=== PATIENT | female | born 1955 | race Caucasian/White ===

== ENCOUNTER 2017-08-20 16:24 | Emergency (ER) | payer OTHER ==
[2017-08-20 16:41] VITALS: O2SAT 98
[2017-08-20] MEDS ORDERED: Adacel Vial IM ONE ×2 (17:02→17:18)
[2017-08-20] MEDS ORDERED: TYLENOL 325 MG PO STA (17:02)
[2017-08-20] MEDS ORDERED: Augmentin 875-125 Tablet PO ONE (17:02)
--- NOTE | 2017-08-20 17:10 | ERPHSYRPT ---
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 Triage Nursing Assessment: pt pink, warm, dry. 2 puncture wounds with bruising noted to right anterior thigh. no bleeding. pt ambulated into Er without difficulty. 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 Method of Injury: other (DOG BITE) Occurred: just prior to arrival Quality: throbbing Severity of Pain-Max: mild Severity of Pain-Current: mild Lower Extremities Pain: thigh: right (MID ASPECT) Modifying Factors: Improves With: nothing Associated Symptoms: other (PAIN UPON WEIGHT BEARING) Allergies/Adverse Reactions: isosorbide [From Imdur] Allergy (Intermediate, Verified 08/20/17 16:41) Home Medications: Aspirin EC 81 mg [Ecotrin 81 mg] 81 mg PO QPM 05/24/13 [History] Clopidogrel Bisulfate 75 mg [PLAVIX 75 MG Tablet] 75 mg PO QAM 05/24/13 [ History] Levothyroxine Sodium 75 Mcg [Synthroid 75 Mcg] 50 mcg PO QAM 05/24/13 [ History] Nebivolol HCl 5 MG [Bystolic 5 MG] 20 mg PO QPM 05/24/13 [History] Vit 91/Iron/Folic/Dha [ + Dha Combo Pack] 1 each PO QAM [History] Amlodipine Besylate [Norvasc] 5 mg PO DAILY 06/01/13 [History] Ospemifene [Osphena] 60 mg PO DAILY 08/20/17 [History] Hx Tetanus, Diphtheria Vaccination/Date Given: Yes (unknown) Hx Influenza Vaccination/Date Given: No Hx Pneumococcal Vaccination/Date Given: No Immunizations Up to Date: Yes - Review of Systems Constitutional: No Fever, No Chills Eyes: No Symptoms Ears, Nose, & Throat: No Symptoms Cardiac: No Chest Pain, No Edema, No Syncope Abdominal/Gastrointestinal: No Symptoms, No Abdominal Pain, No Nausea, No Vomiting, No Diarrhea Genitourinary Symptoms: No Symptoms, No Dysuria Musculoskeletal: Injury, Other (DOG BITE), No Back Pain, No Neck Pain Skin: No Rash Neurological: No Dizziness, No Focal Weakness, No Sensory Changes Psychological: No Symptoms Endocrine: No Symptoms All Other Systems: Reviewed and Negative - Past Medical History Pertinent Past Medical History: Yes Neurological History: No Pertinent History ENT History: No Pertinent History Cardiac History: Coronary Artery Disease, High Cholesterol, Hypertension Respiratory History: No Pertinent History Endocrine Medical History: Hypothyroidism Musculoskeletal History: No Pertinent History GI Medical History: No Pertinent History History: No Pertinent History Psycho-Social History: No Pertinent History Female Reproductive Disorders: No Pertinent History Other Medical History: two stints in her heart - Past Surgical History Past Surgical History: Yes Neuro Surgical History: No Pertinent History Cardiac: Cardiac Catheterization, Cardiac Stent Respiratory: No Pertinent History Gastrointestinal: No Pertinent History Genitourinary: No Pertinent History Musculoskeletal: No Pertinent History Female Surgical History: Tubal Ligation - Social History Smoking Status: Former smoker How long have you smoked: 30 Exposure to second hand smoke: Yes Alcohol Use: Socially Drug Use: none Patient Lives Alone: No Significant Family History: no pertinent family hx - Female History Hx Now: No - Nursing Vital Signs Nursing Vital Signs: Initial Vital Signs Temperature 97.8 F 08/20/17 16:37 Pulse Rate 74 08/20/17 16:37 Respiratory Rate 18 08/20/17 16:37 Blood Pressure 156/90 08/20/17 16:37 O2 Sat by Pulse Oximetry 98 08/20/17 16:37 Pain Scale Pain Intensity 3 - Physical Exam General Appearance: alert Legs Exam: right leg: pain, swelling, other (RIGHT MID THIGH 5CM X 8CM SWELLING WITH ECCHYMOSIS SURROUNDING 2 3MM X 4MM PUNCTURE WOUNDS) Skin Exam: normal color, warm, dry SpO2 Interpretation: normal SpO2: 98 Oxygen Delivery: Room Air Ordered Tests: Active Orders 24 hr Category Date Time Status Wound Care STAT Care 08/20/17 17:04 Active Medication Summary Discontinued Medications Generic Name Dose Route Start Last Admin Trade Name Freq PRN Reason Stop Dose Admin Acetaminophen 650 mg 08/20/17 17:02 Tylenol 325 Mg PO 08/20/17 17:03 STAT STA Amoxicillin/Clavulanate Potassium 875 mg 08/20/17 17:02 Augmentin 875-125 Tablet PO 08/20/17 17:03 STAT ONE Diphtheria/Tetanus/Acell Pertussis 0.5 ml 08/20/17 17:02 Adacel Vial IM 08/20/17 17:03 .ONCE ONE - Progress Progress Note: 08/20/17 17:17 THE WOUND CLEANSE WITH HIBICLENS, ADMINISTERED TETNUS T-DAP 0.5ML IM. TYLENOL 650MG, AUGMENTIN 875MG ORALLY 08/20/17 17:18 08/20/17 17:19 Counseled pt/family regarding: diagnosis, need for follow-up - Departure Time of Disposition: 17:30 Departure Disposition: Home Clinical Impression: DOG BITE RIGHT THIGH Condition: Stable Critical Care Time: No Additional Instructions: CLEANSE PUNCTURE SITES WITH SOAP AND WATER TWICE DAILY AND APPLY BACITRACIN OINTMENT OVER WOUND AFTER CLEANSING. ANTIBIOTIC AUGMENTIN 875MG TWICE DAILY FOR 10 DAYS, TYLENOL #3 EVERY 4-6 HOURS NEEDED. APPLY ICE OVER THIGH SWELLING EVERY 4 HOURS, 30 MINUTES FOR DURATION 48 HOURS. WATCH FOR SIGNS OF INFECTION, REDNESS, SWELLING OR DRAINAGE. Prescriptions: Codeine Phosphate/APAP #3 [Tylenol #3 Tablet] 1 tab PO Q4H PRN PRN #15 tablet PRN Reason: Pain Amox Tr/Potass Clav. 875 mg [Augmentin 875-125 Tablet] 875 mg PO BID #20 tablet
[2017-08-20] MEDS ORDERED: TYLENOL 325 MG ONE (17:18)
[2017-08-20] MEDS ORDERED: Augmentin 875-125 Tablet ONE (17:18)
[2017-08-20 17:47] VITALS: BP 158/97; PULSE 75
== END 2017-08-20 17:44 | disposition home or self-care (01) ==
LOC: ED 16:24
DX: S71.151A Open bite, right thigh, initial encounter (principal); W54.0XXA Bitten by dog, initial encounter
CPT/HCPCS: 90471; 90715; 99284; A9270-GY

== ENCOUNTER 2018-06-15 17:27 | Emergency (ER) | payer OTHER ==
[2018-06-15] MEDS ORDERED: TORAdol 30 mg Injection IV ONE (17:59)
[2018-06-15] MEDS ORDERED: Zofran 4 MG/2 ML VIAL IV ONE (17:59)
[2018-06-15] MEDS ORDERED: Hydromorphone 1 mg/ml Ampule IV ONE (17:59)
[2018-06-15] MEDS ORDERED: Sodium Chloride 0.9% 1000 ML 1,000 ML IV SCH (18:00)
[2018-06-15] MEDS ORDERED: Zofran 4 MG/2 ML VIAL ONE (18:08)
[2018-06-15] MEDS ORDERED: Hydromorphone 1 mg/ml Ampule ONE (18:08)
[2018-06-15] MEDS ORDERED: TORAdol 30 mg Injection ONE (18:08)
[2018-06-15] MEDS ORDERED: Sodium Chloride 0.9% 1000 ML 1,000 ML ONE (18:08)
--- NOTE | 2018-06-15 18:14 | ERPHSYRPT ---
- History of Present Illness Time Seen by Provider: 06/15/18 17:57 Historian: patient Exam Limitations: clinical condition Patient Subjective Stated Complaint: left side back pain starting yesterday. thought she may have a UTI.. 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 Triage Nursing Assessment: alert and restless.. pain in left flank going into left abdomen.. able to urinate on arrival. no known injury. no pain on palpation.. pain has increased since yesterday Physician History: PATIENT WITH A HISTORY OF HYPERTENSION, CORONARY ARTERY DISEASE COMPLAINS OF LEFT FLANK PAIN ONSET YESTERDAY AT 4PM, CONSTANT WITH RADIATION INTO LEFT LOWER ABDOMEN. HAS ASSOCIATED NAUSEA. DENIES FEVER, CHILLS, URINARY SYMPTOMS, DIARRHEA. STATES PAIN SCALE 9/10. ADMITS TO SHOVELING 3 TRUCK LOADS OF SAW DUST 4 DAYS AGO. Timing/Duration: yesterday Activities at Onset: none Quality: sharpness, throbbing Abdominal Pain Onset Location: LLQ, flank Pain Radiation: no radiation Severity of Pain-Max: severe Severity of Pain-Current: severe Modifying Factors: Improves With: movement Associated Symptoms: nausea Previous symptoms: no prior history Allergies/Adverse Reactions: isosorbide [From Imdur] Allergy (Intermediate, Verified 06/15/18 17:52) Home Medications: Aspirin EC 81 mg [Ecotrin 81 mg] 81 mg PO QPM 05/24/13 [History] Clopidogrel Bisulfate 75 mg [PLAVIX 75 MG Tablet] 75 mg PO QAM 05/24/13 [ History] Levothyroxine Sodium 75 Mcg [Synthroid 75 Mcg] 50 mcg PO QAM 05/24/13 [ History] Nebivolol HCl 5 MG [Bystolic 5 MG] 20 mg PO QPM 05/24/13 [History] Vit 91/Iron/Folic/Dha [ + Dha Combo Pack] 1 each PO QAM [History] Amlodipine Besylate [Norvasc] 5 mg PO DAILY 06/01/13 [History] Ospemifene [Osphena] 60 mg PO DAILY 08/20/17 [History] Hx Tetanus, Diphtheria Vaccination/Date Given: Yes (unknown) Hx Influenza Vaccination/Date Given: No Hx Pneumococcal Vaccination/Date Given: No - Review of Systems Constitutional: No Fever, No Chills Eyes: No Symptoms Ears, Nose, & Throat: No Symptoms Respiratory: No Cough, No Dyspnea Cardiac: No Chest Pain, No Edema, No Syncope Abdominal/Gastrointestinal: Abdominal Pain, No Nausea, No Vomiting, No Diarrhea Genitourinary Symptoms: Flank Pain, No Dysuria Musculoskeletal: No Back Pain, No Neck Pain Skin: No Rash Neurological: No Dizziness, No Focal Weakness, No Sensory Changes Psychological: No Symptoms Endocrine: No Symptoms All Other Systems: Reviewed and Negative - Past Medical History Pertinent Past Medical History: Yes Neurological History: No Pertinent History ENT History: No Pertinent History Cardiac History: Coronary Artery Disease, High Cholesterol, Hypertension Respiratory History: No Pertinent History Endocrine Medical History: Hypothyroidism Musculoskeletal History: No Pertinent History GI Medical History: No Pertinent History History: No Pertinent History Psycho-Social History: No Pertinent History Female Reproductive Disorders: No Pertinent History Other Medical History: two stints in her heart - Past Surgical History Past Surgical History: Yes Neuro Surgical History: No Pertinent History Cardiac: Cardiac Catheterization, Cardiac Stent Respiratory: No Pertinent History Gastrointestinal: No Pertinent History Genitourinary: No Pertinent History Musculoskeletal: No Pertinent History Female Surgical History: Tubal Ligation - Social History Smoking Status: Unknown if ever smoked How long have you smoked: 30 Exposure to second hand smoke: No Alcohol Use: Socially Drug Use: none Patient Lives Alone: No Significant Family History: no pertinent family hx - Female History Hx Now: No - Nursing Vital Signs Nursing Vital Signs: Initial Vital Signs Temperature 98.5 F 06/15/18 17:45 Pulse Rate 77 06/15/18 17:45 Respiratory Rate 20 06/15/18 17:45 Blood Pressure 164/86 06/15/18 17:45 O2 Sat by Pulse Oximetry 100 06/15/18 17:45 Pain Scale Pain Intensity [] 8 Pain Intensity 7 - Physical Exam General Appearance: moderate distress Eye Exam: PERRL/EOMI Ears, Nose, Throat Exam: normal ENT inspection Neck Exam: normal inspection, non-tender, supple, full range of motion Respiratory Exam: normal breath sounds, lungs clear, No respiratory distress Cardiovascular Exam: regular rate/rhythm, normal heart sounds Gastrointestinal/Abdomen Exam: soft, normal bowel sounds, tenderness (LEFT LOWER LATERAL ABDOMINAL AREA) Back Exam: CVA tenderness (MINIMAL LEFT CVA TENDERNESS, MARKED LEFT PARASPINAL LUMBAR TENDERNESS L1-L4) Extremity Exam: normal inspection Neurologic Exam: alert, oriented x 3 Skin Exam: normal color SpO2 Interpretation: normal SpO2: 100 Oxygen Delivery: Room Air - CT Exams Abdomen/Pelvis CT Interpretation: Discussed w/radiologist (FAINT NONOBSTRUCTIVE BILATERAL RENAL STONES OTHERWISE NEGATIVE) Ordered Tests: Active Orders 24 hr Category Date Time Status IV Insertion STAT Care 06/15/18 17:59 Active ABDOMEN AND PELVIS W/0 CONTRAS [CT] Stat Exams 06/15/18 17:59 Taken CBC W DIFF Stat Lab 06/15/18 18:15 Completed CMP Stat Lab 06/15/18 18:15 Completed CULTURE,URINE Stat Lab 06/15/18 18:14 Received UA W/RFX UR CULTURE Stat Lab 06/15/18 18:14 Completed Medication Summary Generic Name Dose Route Start Last Admin Trade Name Freq PRN Reason Stop Dose Admin Sodium Chloride 1,000 mls @ 250 mls/hr 06/15/18 18:00 06/15/18 18:15 Sodium Chloride 0.9% 1000 Ml IV 07/15/18 17:59 250 mls/hr .Q4H MATTIE Administration Discontinued Medications Generic Name Dose Route Start Last Admin Trade Name Freq PRN Reason Stop Dose Admin Fentanyl Citrate 50 mcg 06/15/18 20:03 06/15/18 20:12 Sublimaze 100 Mcg/2 Ml IV 06/15/18 20:04 50 mcg STAT ONE Administration Fentanyl Citrate Confirm 06/15/18 20:07 Sublimaze 100 Mcg/2 Ml Administered 06/15/18 20:08 Dose 100 mcg .ROUTE .STK-MED ONE Hydromorphone HCl 1 mg 06/15/18 17:59 06/15/18 18:14 Hydromorphone 1 Mg/Ml Ampule IV 06/15/18 18:00 1 mg STAT ONE Administration Hydromorphone HCl Confirm 06/15/18 18:08 Hydromorphone 1 Mg/Ml Ampule Administered 06/15/18 18:09 Dose 1 mg .ROUTE .STK-MED ONE Ceftriaxone Sodium/Dextrose 1 g in 50 mls @ 100 mls/hr 06/15/18 19:48 19:54 Rocephin 1 Gm-D5w 50 Ml Bag IV 06/15/18 20:17 100 ml/hr STAT STA 100 mls/hr Administration Ceftriaxone Sodium/Dextrose Confirm 06/15/18 19:51 Rocephin 1 Gm-D5w 50 Ml Bag Administered 06/15/18 19:52 Dose 1 g in 50 mls @ ud IV .STK-MED ONE Ketorolac Tromethamine 30 mg 06/15/18 17:59 06/15/18 18:14 Toradol 30 Mg Injection IV 06/15/18 18:00 30 mg STAT ONE Administration Ketorolac Tromethamine Confirm 06/15/18 18:08 Toradol 30 Mg Injection Administered 06/15/18 18:09 Dose 30 mg .ROUTE .STK-MED ONE Ondansetron HCl 4 mg 06/15/18 17:59 06/15/18 18:15 Zofran 4 Mg/2 Ml Vial IV 06/15/18 18:00 4 mg STAT ONE Administration Ondansetron HCl Confirm 06/15/18 18:08 Zofran 4 Mg/2 Ml Vial Administered 06/15/18 18:09 Dose 4 mg .ROUTE .STK-MED ONE Orphenadrine Citrate 60 mg 06/15/18 20:03 06/15/18 20:23 Norflex 60 Mg/2 Ml IM 06/15/18 20:04 60 mg STAT ONE Administration Orphenadrine Citrate Confirm 06/15/18 20:07 Norflex 60 Mg/2 Ml Administered 06/15/18 20:08 Dose 60 mg .ROUTE .STK-MED ONE Orphenadrine Citrate Confirm 06/15/18 20:19 Norflex 60 Mg/2 Ml Administered 06/15/18 20:20 Dose 60 mg .ROUTE .STK-MED ONE Lab/Rad Data: Laboratory Result Diagrams 06/15/18 18:15 06/15/18 18:15 Laboratory Results 06/15/18 06/15/18 06/15/18 Range/Units 18:15 18:15 18:14 WBC 7.2 (4.0-10.5) K/mm3 RBC 4.00 L (4.1-5.4) M/mm3 Hgb 12.4 (12.0-16.0) gm/dl Hct 38.1 (35-47) % MCV 95.3 (78-100) fl MCH 31.0 (26-32) pg MCHC 32.5 (32-36) g/dl RDW 13.5 (11.5-14.0) % Plt Count 184 (150-450) K/mm3 MPV 11.0 H (6-9.5) fl Gran % 70.9 H (36.0-66.0) % Eos # (Auto) 0.02 (0-0.5) Absolute Lymphs (auto) 1.46 (1.0-4.6) Absolute Monos (auto) 0.58 (0.0-1.3) Lymphocytes % 20.4 L (24.0-44.0) % Monocytes % 8.1 (0.0-12.0) % Eosinophils % 0.3 (0.00-5.0) % Basophils % 0.3 (0.0-0.4) % Absolute Granulocytes 5.09 (1.4-6.9) Basophils # 0.02 (0-0.4) Sodium 138 (137-145) mmol/L Potassium 4.3 (3.5-5.1) mmol/L Chloride 104 (98-107) mmol/L Carbon Dioxide 25 (22-30) mmol/L Anion Gap 13.6 (5-15) MEQ/L BUN 22 H (7-17) mg/dL Creatinine 0.75 (0.52-1.04) mg/dL Estimated GFR > 60.0 ML/MIN Glucose 125 H (74-106) mg/dL Calcium 9.8 (8.4-10.2) mg/dL Total Bilirubin 0.50 (0.2-1.3) mg/dL AST 30 (14-36) U/L ALT 24 (0-35) U/L Alkaline Phosphatase 64 (38-126) U/L Serum Total Protein 7.7 (6.3-8.2) g/dL Albumin 4.8 (3.5-5.0) g/dL Urine Color YELLOW (YELLOW) Urine Appearance SLIGHTLY CLOUDY (CLEAR) Urine pH 5.0 (5-6) Ur Specific [place] 1.035 (1.005-1.025) Urine Protein 30 (Negative) Urine Ketones SMALL (NEGATIVE) Urine Blood NEGATIVE (0-5) Tay/ul Urine Nitrite NEGATIVE (NEGATIVE) Urine Bilirubin NEGATIVE (NEGATIVE) Urine Urobilinogen NORMAL (0-1) mg/dL Ur Leukocyte Esterase SMALL (NEGATIVE) Urine WBC (Auto) 11-15 (0-5) /HPF Urine RBC (Auto) 3-5 (0-2) /HPF U Epithel Cells (Auto) RARE (FEW) /HPF Urine Bacteria (Auto) NONE (NEGATIVE) /HPF Urine Mucus (Auto) SLIGHT (NEGATIVE) /HPF Urine Culture Reflexed YES (NO) Urine Glucose NEGATIVE (NEGATIVE) mg/dL - Progress Progress Note: 06/15/18 18:13 IV NORMAL SALINE 250ML/HR, ZOFRAN 4MG, TORADOL 30MG, DILAUDID 1MG IV 06/15/18 19:28, PAIN MARKEDLY IMPROVED Counseled pt/family regarding: lab results, diagnosis, need for follow-up, rad results - Departure Time of Disposition: 21:35 Departure Disposition: Home Clinical Impression: ACUTE LOW BACK PAIN, MICRORENAL CALCULLI, URINARY TRACT INFECTION Condition: Stable Critical Care Time: No Referrals: DOCTOR,NO FAMILY [Primary Care Provider] - Additional Instructions: ANTIBIOTIC BACTRIM DS TWICE DAILY FOR 10 DAYS. NORCO 10/325 EVERY 6 HOURS FOR SEVERE PAIN DISCOMFORT. TORADOL 10MG EVERY 6 HOURS FOR MILD TO MODERATE PAIN. NORFLEX 100MG TWICE DAILY FOR MUSCLE SPASMS NEEDED. REMAIN OFF WORK UNTIL . CONSULT YOUR PRIMARY CARE PROVIDER FOR FOLLOWUP IN 1 WEEK. Prescriptions: Hydrocodone/APAP 10/325 mg [[place] 10/325 MG Tablet] 1 tab PO Q4H PRN PRN # 10 tablet MDD 4 PRN Reason: Pain Ketorolac Tromethamine [Toradol] 10 mg PO Q6H PRN PRN #20 tablet PRN Reason: Pain Orphenadrine Citrate 100 mg [Norflex 100 MG Tablet] 100 mg PO [id number] PRN #10 tab PRN Reason: Muscle Spasms Smz/Tmp Ds Tablet [Bactrim Ds Tablet] 1 tab PO BID #20 tablet
[2018-06-15 18:27] LABS: BASOPHIL % 0.3 % (0.0-0.4); Basophil (Absolute #) 0.02 (0-0.4); Eosinophil % 0.3 % (0.00-5.0); Eosinophil (Absolute #) 0.02 (0-0.5); Granulocyte Absolute (ANC) 5.09 (1.4-6.9); Granulocytes % 70.9 % (36.0-66.0); Hematocrit 38.1 % (35-47); Hemoglobin 12.4 gm/dl (12.0-16.0); Lymphocyte (Absolute #) 1.46 (1.0-4.6); Lymphocytes % 20.4 % (24.0-44.0); Mean Cell Volume 95.3 fl (78-100); Mean Corpuscular Hgb Concent. 32.5 g/dl (32-36); Monocyte (Absolute #) 0.58 (0.0-1.3); Monocytes % 8.1 % (0.0-12.0); Platelet Count 184 K/mm3 (150-450); Red Cell Distribution Width 13.5 % (11.5-14.0); White Blood Count 7.2 K/mm3 (4.0-10.5)
[2018-06-15 18:54] LABS: ALBUMIN 4.8 g/dL (3.5-5.0); ALKALINE PHOSPHATASE 64 U/L (38-126); ANION GAP 13.6 MEQ/L (5-15); BLOOD UREA NITROGEN 22 mg/dL (7-17); CHLORIDE 104 mmol/L (98-107); Calcium 9.8 mg/dL (8.4-10.2); Carbon Dioxide 25 mmol/L (22-30); Creatinine 1 0.75 mg/dL (0.52-1.04); Glucose 125 mg/dL (74-106); Potassium 4.3 mmol/L (3.5-5.1); SGOT/AST 30 U/L (14-36); SGPT/ALT 24 U/L (0-35); SODIUM 138 mmol/L (137-145); Total Protein 7.7 g/dL (6.3-8.2)
[2018-06-15 19:38] LABS: Appearance SLIGHTLY CLOUDY (CLEAR); Leukocyte Esterase SMALL (NEGATIVE); Nitrite NEGATIVE (NEGATIVE); Specific Gravity 1.035 (1.005-1.025)
[2018-06-15 19:39] LABS: Bilirubin NEGATIVE (NEGATIVE); Blood NEGATIVE Ery/ul (0-5); Glucose NEGATIVE (NEGATIVE); Ketones SMALL (NEGATIVE); Protein,Urine Dip 30 (Negative); Urobilinogen NORMAL mg/dL (0-1)
[2018-06-15] MEDS ORDERED: ROCEPHIN 1 Gm-D5w 50 ml Bag** 1 G/50 ML IVPB IV STA (19:48)
[2018-06-15] MEDS ORDERED: ROCEPHIN 1 Gm-D5w 50 ml Bag** 1 G/50 ML IVPB IV ONE (19:51)
[2018-06-15] MEDS ORDERED: Norflex 60 MG/2 ML IM ONE (20:03)
[2018-06-15] MEDS ORDERED: SUBLIMAZE 100 MCG/2 ML IV ONE (20:03)
[2018-06-15] MEDS ORDERED: SUBLIMAZE 100 MCG/2 ML ONE (20:07)
[2018-06-15] MEDS ORDERED: Norflex 60 MG/2 ML ONE ×2 (20:07→20:19)
[2018-06-15 20:44] VITALS: BP 127/66; PULSE 60
[2018-06-15 20:45] VITALS: O2SAT 100
[2018-06-15] MEDS ORDERED: Norco 10/325 MG Tablet PO ONE (20:46)
[2018-06-15] MEDS ORDERED: Norco 10/325 MG Tablet ONE (20:49)
--- NOTE | 2018-06-16 08:39 | XRAY ---
Indication: Left flank pain. Possible stone. Multiple contiguous axial images obtained through the abdomen and pelvis without contrast as ordered. Comparison: None Lung bases demonstrates minimal bibasilar fibrosis/scarring. Heart is not enlarged. Nonobstructing faint punctate calculus in each kidney. Noncontrasted stomach and bowel loops appear nonobstructed. Gastric suture material from previous surgery. There is moderate diffuse scattered colonic fecal debris throughout. No free fluid/air. Remaining liver, gallbladder, pancreas, spleen, adrenal glands, kidneys, ureters, bladder, and uterus appear unremarkable for noncontrast exam. Moderate aortoiliac calcifications without AAA. Osseous structures intact with minimal degenerative changes throughout the lumbar spine. No ventral or inguinal hernias. Impression: 1. Nonobstructing bilateral renal micro-calculus. 2. Fecal stasis without obstruction. 3. Remaining CT abdomen/pelvis without contrast exam is negative. CT DI 13.91
== END 2018-06-15 21:00 | disposition home or self-care (01) ==
LOC: ED 17:27
DX: M54.5 Low back pain (principal); R10.32 Left lower quadrant pain; N39.0 Urinary tract infection, site not specified; N20.0 Calculus of kidney; Z79.01 Long term (current) use of anticoagulants; Z79.899 Other long term (current) drug therapy
CPT/HCPCS: 36415; 74176; 80053; 81001; 85025; 87086; 96360; 96361; 96365; 96367; 96372; 96374; 96375; 96376; 99284; J0696; J1170; J1885; J2360; J2405; J3010; A9270-GY

== ENCOUNTER 2018-06-18 12:40 | Emergency (ER) | payer OTHER ==
--- NOTE | 2018-06-18 13:11 | ERPHSYRPT ---
- History of Present Illness Time Seen by Provider: 06/18/18 13:05 Source: patient, family Exam Limitations: no limitations Patient Subjective Stated Complaint: pt here for left sided back pain since wednesday and was dx with back spasms, and uti and states she does not feel better and now has lump to left lower abd since yesterday Triage Nursing Assessment: pt alert, resp easy, skin w/d/p, no edema noted, abd soft but tender to left lower abd Physician History: The patient is a 62-year-old female with her complaining of lower left back and buttock pain for the last 4 days. She was seen in this ER on Wednesday for the same complaint. An abdomen and pelvis CT was done that was negative. She was given prescriptions for Bactrim for UTI, Norflex and [place] for the back pain. She was also given a work excuse. She also complains of a "lump" that has popped up in her left lower abdomen yesterday. It is not painful. She vomited last night. Her past medical history is significant for CAD, cardiac stent, hypertension, high cholesterol, and hypothyroidism. Timing/Duration: day(s) (4), constant, gradual onset Severity: moderate Modifying Factors: Improves With: medication Associated Symptoms: vomiting Allergies/Adverse Reactions: isosorbide [From Imdur] Allergy (Intermediate, Verified 06/18/18 12:49) Home Medications: Aspirin EC 81 mg [Ecotrin 81 mg] 81 mg PO QPM 05/24/13 [History] Clopidogrel Bisulfate 75 mg [PLAVIX 75 MG Tablet] 75 mg PO QAM 05/24/13 [ History] Levothyroxine Sodium 75 Mcg [Synthroid 75 Mcg] 50 mcg PO QAM 05/24/13 [ History] Nebivolol HCl 5 MG [Bystolic 5 MG] 20 mg PO QPM 05/24/13 [History] Vit 91/Iron/Folic/Dha [ + Dha Combo Pack] 1 each PO QAM [History] Amlodipine Besylate [Norvasc] 5 mg PO DAILY 06/01/13 [History] Ospemifene [Osphena] 60 mg PO DAILY 08/20/17 [History] Hx Tetanus, Diphtheria Vaccination/Date Given: Yes (unknown) Hx Influenza Vaccination/Date Given: No Hx Pneumococcal Vaccination/Date Given: No Immunizations Up to Date: Yes - Review of Systems Constitutional: No Fever, No Chills Eyes: No Symptoms Ears, Nose, & Throat: No Symptoms Respiratory: No Cough, No Dyspnea Cardiac: No Chest Pain, No Edema, No Syncope Abdominal/Gastrointestinal: Vomiting Genitourinary Symptoms: No Dysuria Musculoskeletal: Back Pain Skin: No Rash Neurological: No Dizziness, No Focal Weakness, No Sensory Changes Psychological: No Symptoms Endocrine: No Symptoms Hematologic/Lymphatic: No Symptoms Immunological/Allergic: No Symptoms All Other Systems: Reviewed and Negative - Past Medical History Pertinent Past Medical History: Yes Neurological History: No Pertinent History ENT History: No Pertinent History Cardiac History: Coronary Artery Disease, High Cholesterol, Hypertension Respiratory History: No Pertinent History Endocrine Medical History: Hypothyroidism Musculoskeletal History: No Pertinent History GI Medical History: No Pertinent History History: No Pertinent History Psycho-Social History: No Pertinent History Female Reproductive Disorders: No Pertinent History Other Medical History: two stints in her heart - Past Surgical History Past Surgical History: Yes Neuro Surgical History: No Pertinent History Cardiac: Cardiac Catheterization, Cardiac Stent Respiratory: No Pertinent History Gastrointestinal: No Pertinent History Genitourinary: No Pertinent History Musculoskeletal: No Pertinent History Female Surgical History: Tubal Ligation - Social History Smoking Status: Unknown if ever smoked How long have you smoked: 30 Exposure to second hand smoke: No Alcohol Use: Socially Drug Use: none Patient Lives Alone: No Significant Family History: no pertinent family hx - Female History Hx Last Menstrual Period: post Hx Now: No - Nursing Vital Signs Nursing Vital Signs: Initial Vital Signs Temperature 97.4 F 06/18/18 12:50 Pulse Rate 77 06/18/18 12:50 Respiratory Rate 16 06/18/18 12:50 Blood Pressure 145/83 06/18/18 12:50 O2 Sat by Pulse Oximetry 96 06/18/18 12:50 Pain Scale Pain Intensity [Back] 8 Pain Intensity 5 - Physical Exam General Appearance: no apparent distress, alert Eye Exam: PERRL/EOMI, eyes nml inspection Ears, Nose, Throat Exam: normal ENT inspection, TMs normal, pharynx normal, moist mucous membranes Neck Exam: normal inspection, non-tender, supple, full range of motion Respiratory Exam: normal breath sounds, lungs clear, No respiratory distress Cardiovascular Exam: regular rate/rhythm, normal heart sounds, normal peripheral pulses Gastrointestinal/Abdomen Exam: other (When pt stands, there is nontender distention of LLQ. ), No pulsatile mass Pelvic Exam: not done Rectal Exam: not done Back Exam: point tenderness (Point tenderness to small area of upper left buttock that reproduces pt's pain.) Extremity Exam: normal inspection, normal range of motion, pelvis stable Neurologic Exam: alert, oriented x 3, cooperative, normal mood/affect, nml cerebellar function, nml station & gait, sensation nml, No motor deficits Skin Exam: normal color, warm, dry, No rash Lymphatic Exam: No adenopathy SpO2 Interpretation: normal SpO2: 96 Oxygen Delivery: Room Air - CT Exams Abdomen/Pelvis CT Interpretation: Tele-radiologist Report (per Dr Cruz), Pneumonia (patchy areas of airspace consolidation in right lung; desiccated stool in large bowel; no acute abd findings.) Ordered Tests: Active Orders 24 hr Category Date Time Status Clean Catch Urine Specimen STAT Care 06/18/18 13:12 Active IV Insertion STAT Care 06/18/18 13:12 Active ABDOMEN AND PELVIS W/0 CONTRAS [CT] Stat Exams 06/18/18 13:13 Taken AMYLASE Stat Lab 06/18/18 13:29 Completed CBC W DIFF Stat Lab 06/18/18 13:29 Completed CMP Stat Lab 06/18/18 13:29 Completed CULTURE,URINE Stat Lab 06/18/18 13:31 Received LIPASE Stat Lab 06/18/18 13:29 Completed UA W/RFX UR CULTURE Stat Lab 06/18/18 13:31 Completed Medication Summary Discontinued Medications Generic Name Dose Route Start Last Admin Trade Name Maddy PRN Reason Stop Dose Admin Morphine Sulfate 4 mg 06/18/18 13:12 06/18/18 13:32 Morphine Sulfate 4 Mg Inj IV 06/18/18 13:13 4 mg STAT ONE Administration Morphine Sulfate Confirm 06/18/18 13:30 Morphine Sulfate 4 Mg Inj Administered 06/18/18 13:31 Dose 4 mg .ROUTE .STK-MED ONE Ondansetron HCl 4 mg 06/18/18 13:12 06/18/18 13:32 Zofran 4 Mg/2 Ml Vial IV 06/18/18 13:13 4 mg STAT ONE Administration Ondansetron HCl Confirm 06/18/18 13:30 Zofran 4 Mg/2 Ml Vial Administered 06/18/18 13:31 Dose 4 mg .ROUTE .STK-MED ONE Lab/Rad Data: Laboratory Result Diagrams 06/18/18 13:29 06/18/18 13:29 Laboratory Results 06/18/18 06/18/18 06/18/18 Range/Units 13:31 13:29 13:29 WBC 7.4 (4.0-10.5) K/mm3 RBC 3.73 L (4.1-5.4) M/mm3 Hgb 11.5 L (12.0-16.0) gm/dl Hct 35.5 (35-47) % MCV 95.2 (78-100) fl MCH 30.8 (26-32) pg MCHC 32.4 (32-36) g/dl RDW 13.3 (11.5-14.0) % Plt Count 184 (150-450) K/mm3 MPV 10.8 H (6-9.5) fl Gran % 67.0 H (36.0-66.0) % Eos # (Auto) 0.08 (0-0.5) Absolute Lymphs (auto) 1.57 (1.0-4.6) Absolute Monos (auto) 0.77 (0.0-1.3) Lymphocytes % 21.2 L (24.0-44.0) % Monocytes % 10.4 (0.0-12.0) % Eosinophils % 1.1 (0.00-5.0) % Basophils % 0.3 (0.0-0.4) % Absolute Granulocytes 4.97 (1.4-6.9) Basophils # 0.02 (0-0.4) Sodium 137 (137-145) mmol/L Potassium 4.2 (3.5-5.1) mmol/L Chloride 104 (98-107) mmol/L Carbon Dioxide 22 (22-30) mmol/L Anion Gap 15.2 H (5-15) MEQ/L BUN 17 (7-17) mg/dL Creatinine 0.87 (0.52-1.04) mg/dL Estimated GFR > 60.0 ML/MIN Glucose 95 (74-106) mg/dL Calcium 9.4 (8.4-10.2) mg/dL Total Bilirubin 0.60 (0.2-1.3) mg/dL AST 34 (14-36) U/L ALT 22 (0-35) U/L Alkaline Phosphatase 61 (38-126) U/L Serum Total Protein 7.4 (6.3-8.2) g/dL Albumin 4.3 (3.5-5.0) g/dL Amylase 69 (30-110) U/L Lipase 45 (23-300) U/L Urine Color YELLOW (YELLOW) Urine Appearance SLIGHTLY CLOUDY (CLEAR) Urine pH 5.0 (5-6) Ur Specific Armstrong 1.030 (1.005-1.025) Urine Protein 30 (Negative) Urine Ketones SMALL (NEGATIVE) Urine Blood NEGATIVE (0-5) Tay/ul Urine Nitrite NEGATIVE (NEGATIVE) Urine Bilirubin NEGATIVE (NEGATIVE) Urine Urobilinogen NORMAL (0-1) mg/dL Ur Leukocyte Esterase SMALL (NEGATIVE) Urine WBC (Auto) 26-50 (0-5) /HPF Urine RBC (Auto) 6-10 (0-2) /HPF U Epithel Cells (Auto) RARE (FEW) /HPF Urine Bacteria (Auto) MANY (NEGATIVE) /HPF U Non-Squamous Epi Cells FEW (FEW) /HPF Urine Mucus (Auto) SLIGHT (NEGATIVE) /HPF Urine Culture Reflexed YES (NO) Urine Glucose NEGATIVE (NEGATIVE) mg/dL - Progress Progress: improved Counseled pt/family regarding: lab results, diagnosis, need for follow-up, rad results - Departure Time of Disposition: 16:30 Departure Disposition: Home Clinical Impression: UTI (urinary tract infection), Pneumonia, Sciatica Condition: Stable Critical Care Time: No Referrals: DOCTOR,NO FAMILY [Primary Care Provider] - Additional Instructions: You have a urinary tract infection. You also have pneumonia that was detected on the CT scan. You also have sciatica on your left side. You were given morphine 4 mg and Zofran 4 mg by IV in the ER. Take levofloxacin 750 mg once a day for 7 days. Stop taking the Bactrim that you were prescribed recently. Apply ice to the lower back pain as needed. Follow-up with your primary medical doctor as needed. Prescriptions: Levofloxacin [Levaquin] 1 tab PO DAILY #7 tablet
[2018-06-18] MEDS ORDERED: Zofran 4 MG/2 ML VIAL IV ONE (13:12)
[2018-06-18] MEDS ORDERED: MORPHINE SULFATE 4 MG INJ IV ONE (13:12)
[2018-06-18] MEDS ORDERED: Zofran 4 MG/2 ML VIAL ONE (13:30)
[2018-06-18] MEDS ORDERED: MORPHINE SULFATE 4 MG INJ ONE (13:30)
[2018-06-18 13:33] LABS: BASOPHIL % 0.3 % (0.0-0.4); Basophil (Absolute #) 0.02 (0-0.4); Eosinophil % 1.1 % (0.00-5.0); Eosinophil (Absolute #) 0.08 (0-0.5); Granulocyte Absolute (ANC) 4.97 (1.4-6.9); Hematocrit 35.5 % (35-47); Hemoglobin 11.5 gm/dl (12.0-16.0); Lymphocyte (Absolute #) 1.57 (1.0-4.6); Lymphocytes % 21.2 % (24.0-44.0); Mean Cell Volume 95.2 fl (78-100); Mean Corpuscular Hemoglobin 30.8 pg (26-32); Mean Corpuscular Hgb Concent. 32.4 g/dl (32-36); Mean Platelet Volume 10.8 fl (6-9.5); Monocyte (Absolute #) 0.77 (0.0-1.3); Monocytes % 10.4 % (0.0-12.0); Platelet Count 184 K/mm3 (150-450); Red Blood Count 3.73 M/mm3 (4.1-5.4); Red Cell Distribution Width 13.3 % (11.5-14.0); White Blood Count 7.4 K/mm3 (4.0-10.5)
[2018-06-18 13:53] LABS: ALBUMIN 4.3 g/dL (3.5-5.0); ALKALINE PHOSPHATASE 61 U/L (38-126); AMYLASE 69 U/L (30-110); ANION GAP 15.2 MEQ/L (5-15); BLOOD UREA NITROGEN 17 mg/dL (7-17); CHLORIDE 104 mmol/L (98-107); Calcium 9.4 mg/dL (8.4-10.2); Carbon Dioxide 22 mmol/L (22-30); Creatinine 1 0.87 mg/dL (0.52-1.04); Glucose 95 mg/dL (74-106); LIPASE 45 U/L (23-300); Potassium 4.2 mmol/L (3.5-5.1); SGOT/AST 34 U/L (14-36); SGPT/ALT 22 U/L (0-35); SODIUM 137 mmol/L (137-145); Total Protein 7.4 g/dL (6.3-8.2)
[2018-06-18 14:14] LABS: Appearance SLIGHTLY CLOUDY (CLEAR); Glucose NEGATIVE (NEGATIVE); Ketones SMALL (NEGATIVE); Leukocyte Esterase SMALL (NEGATIVE); Nitrite NEGATIVE (NEGATIVE); Protein,Urine Dip 30 (Negative)
[2018-06-18 14:15] LABS: Bilirubin NEGATIVE (NEGATIVE); Blood NEGATIVE Ery/ul (0-5); Urobilinogen NORMAL mg/dL (0-1)
--- NOTE | 2018-06-18 16:29 | XRAY ---
Indication: Left back pain. Nausea and vomiting. Constipation. Left abdomen bulging. Multiple contiguous axial images obtained through the abdomen and pelvis without contrast as ordered. Cutaneous marker placed over the region of "bulge." Comparison: June 15, 2018. Cutaneous BB overlies the left lower quadrant. No underlying abdominal solid/cystic mass, abnormal fluid collection, or hernia. Lung bases demonstrates new patchy bilateral lower lobe airspace disease, right greater than left. No consolidation or large effusion. Heart is not enlarged. Again gastric suture material. Noncontrasted stomach and bowel loops are nonobstructed. Again moderate diffuse colonic fecal debris throughout. No free fluid/air. Gallbladder distended without gallstones or biliary distention. Remaining liver, pancreas, spleen, adrenal glands, kidneys, ureters, bladder, and uterus appear unremarkable for noncontrast exam. Stable moderate aortoiliac calcifications. Impression: 1. New bilateral lower lobe airspace disease, right greater than left. 2. No focal abdominal mass or abnormality corresponding to patient's reported bulge. 3. Again fecal stasis without obstruction. 4. Distended gallbladder. US may yield further information if clinically warranted. Comment: Preliminary interpretation was made by [facility]. No discrepancy. CTDI 13.58
[2018-06-18 16:48] VITALS: BP 134/63; PULSE 74; O2SAT 97
== END 2018-06-18 16:50 | disposition home or self-care (01) ==
LOC: ED 12:40
DX: N39.0 Urinary tract infection, site not specified (principal); J18.9 Pneumonia, unspecified organism; M54.32 Sciatica, left side; R11.10 Vomiting, unspecified; I10 Essential (primary) hypertension; Z79.01 Long term (current) use of anticoagulants; Z79.899 Other long term (current) drug therapy
CPT/HCPCS: 36000; 36415; 74176; 80053; 81001; 82150; 83690; 85025; 87086; 96374; 96375; 99284; J2270; J2405

== ENCOUNTER 2024-08-14 08:27 | Day surgery (SDC) | payer MEDICARE, OTHER ==
--- NOTE | 2024-08-13 20:27 | HP ---
HISTORY OF PRESENT ILLNESS: No prior colonoscopy. Some bright red blood per rectum. Patient has some prolapsing hemorrhoids at times. Family history negative for colon cancer. PAST MEDICAL HISTORY: Glaucoma. She wears corrective lenses. She had thyroid disease and some heart disease. HOME MEDICATIONS: Magnesium oxide, levothyroxine, clopidogrel, Bystolic, Crestor, amlodipine. ALLERGIES: No known drug allergies. PAST SURGICAL HISTORY: Coronary stents in the past, had hand surgery in the past, had tubal in the past. SOCIAL HISTORY: Former smoker. Occasional alcohol use. FAMILY HISTORY: Negative for colon cancer. REVIEW OF SYSTEMS: Twelve systems reviewed. No chest pain or palpitations. Other systems negative or noncontributory as above and per preadmission questionnaire. PHYSICAL EXAMINATION: GENERAL: Height 5 feet 5 inches. BMI 24.96. No acute distress. HEENT: Sclerae anicteric. NECK: No JVD. CARDIOVASCULAR: Regular rate and rhythm. RESPIRATORY: Equal excursion, nonlabored breathing. ABDOMEN: Soft. SKIN: Dry. EXTREMITIES: No cyanosis or edema. NEUROLOGIC: Alert. Moving extremities symmetrically. PSYCHIATRIC: Appropriate mood and affect. RECTAL: Deferred until time of endoscopy exam. IMPRESSION: Rectal bleeding, history of some prolapsing hemorrhoids. Recommend colonoscopy. Patient is interested in possible internal hemorrhoid banding if indicated at time of procedure. Otherwise, she understands the need to avoid constipation, avoid straining at time of bowel movements, titrate fiber or Metamucil fiber containing products until soft bulky stools. Otherwise, risks of the procedure were explained in detail including bleeding and infection, risk of bowel injury or perforation, risk of missed or nondiagnosis or incomplete exam possibly requiring barium enema or other studies or procedures, risk of anesthesia or sedation, risk of bowel prep, but not limited to, as well as risk of hemorrhoid procedure, risk of aches and pains, risk of infection possibly requiring other procedure, risk of sphincter spasm or irritability, risk of progression of hemorrhoids possibly requiring other procedures or referrals or treatments. She understands and will proceed with outpatient colonoscopy and possible internal hemorrhoid banding under MAC anesthesia. Otherwise, continue medication for heart disease, hyperlipidemia, hypertension, thyroid disease, and glaucoma.
[2024-08-14 08:57] VITALS: RESP 18
[2024-08-14 09:08] LABS: ANION GAP 14.3 MEQ/L (5-15); Calcium 9.9 mg/dL (8.4-10.2); Creatinine 1 1.24 mg/dL (0.52-1.04); Potassium 3.7 mmol/L (3.5-5.1)
[2024-08-14] MEDS ORDERED: propofoL IV ONE ×2 (09:14→10:18)
[2024-08-14] MEDS ORDERED: Xylocaine-Mpf 2% 5 Ml Vial ONE (09:14)
[2024-08-14] MEDS ORDERED: Ephedrine Sulfate 50 MG/ML ONE (10:08)
[2024-08-14] MEDS ORDERED: ATROPINE SULFATE 1MG ONE (10:14)
[2024-08-14 11:24] VITALS: PULSE 84; O2SAT 98
[2024-08-14 11:34] VITALS: BP 116/65; TEMP 96.6
--- NOTE | 2024-08-15 12:34 | OP ---
SURGERY DATE/TIME: 08/14/2024 [id number] PREOPERATIVE DIAGNOSES: 1) History of some rectal bleeding. 2) History of some prolapsing internal hemorrhoids. POSTOPERATIVE DIAGNOSES: 1) Colon polyps. 2) Grade 2 intermittent bleeding internal hemorrhoids. 3) External small anal tag. 4) ASA class 3. 5) Good bowel prep. PROCEDURE: 1) Colonoscopy to cecum. 2) Hot snare polypectomy sigmoid colon biopsy. 3) Hot biopsy polypectomy small early polyp versus hyperplastic lesion transverse colon x1. 4) Hot biopsy polypectomy small early polyp versus hyperplastic lesion ascending colon x1. 5) Internal hemorrhoid banding x3 columns. SURGEON: Talib Wolf MD. ANESTHESIA: MAC. PREPARATION: Good. ASA class 3. WITHDRAWAL TIME: 9 minutes. DESCRIPTION OF PROCEDURE AND FINDINGS: Patient was taken to endoscopy room. MAC anesthesia induced. After official time-out, no disagreement in planned procedure. Digital rectal exam revealed a small benign-appearing anal skin tag, some internal hemorrhoids. Videocolonoscope was passed up through the tortuous sigmoid, descending, transverse, and ascending colon. With external pressure, scope passed up to the cecum. Appendiceal orifice and valve well visualized, photo documented. Prep overall was good. ASA class 3. The scope was carefully withdrawn over the next 9 minutes. Small early polyp versus hyperplastic lesion in the ascending colon removed with hot biopsy polypectomy. Small early polyp versus hyperplastic lesion in the transverse colon removed with hot biopsy polypectomy. Good hemostasis noted. Otherwise, scope pulled back over to the sigmoid colon. A 3.5 to 4 mm polyp removed with hot snare polypectomy and vigorous cautery. Staff said they did retrieve the sample. Otherwise, scope was carefully pulled back to the rectum, had some grade 2 hemorrhoids. She had been having problems with bleeding, so she will have some trial internal hemorrhoid banding and also continue to avoid straining at the time of stooling, and titrate to soft bulky stools with high fiber diet and/or Metamucil or fiber-containing product. Scope was withdrawn. While she remained under MAC anesthesia, half-young retractor was carefully inserted. Again, it was felt she was a candidate for banding given her problems with the recurrent bleeding and prolapsing. The 4 left lateral top edge of the internal hemorrhoid column, suction research and development specialist was carefully applied with good tuft tissue noted. This was then repeated in the right posterior and right anterior fashion. Hemorrhoids were a little bit smaller on this side. After hemostasis, retractor was withdrawn. The patient tolerated the procedure well. She did have a little small, benign-appearing anal tag. No signs of any obvious rectal masses. Scope was withdrawal. The patient tolerated the procedure well. There were no immediate complications. There was no family in the waiting area to discuss findings with at this time. We will see her back in the office in 1 week or 2. She is to titrate to soft bulky stools with high fiber diet and/or Metamucil fiber-containing product. She is to avoid straining at the time of stooling. She takes just Tylenol Extra Strength as directed per the silk screener every 6 hours as needed, p.r.n. any aches or pains. Otherwise, we will see her back in the office in a week or two. She can do Sitz baths as needed.
== END 2024-08-14 11:42 | disposition home or self-care (01) ==
LOC: SDC 08:27
PROVIDERS: ATTEND Surgery
DX: Z87.19 Personal history of other diseases of the digestive system (principal); K64.8 Other hemorrhoids; K64.4 Residual hemorrhoidal skin tags; D12.2 Benign neoplasm of ascending colon; D12.5 Benign neoplasm of sigmoid colon; D12.3 Benign neoplasm of transverse colon
CPT/HCPCS: 36415; 80048; 88305; 93005; J0461; J2704